=== PATIENT | female | born 1965 | race Caucasian/White ===

== ENCOUNTER 2025-07-27 16:36 | Emergency (ER) | payer OTHER, SELFPAY ==
[2025-07-27 16:55] VITALS: BP 148/69; PULSE 70; TEMP 36.7; O2SAT 97; BMI 23.4
--- NOTE | 2025-07-27 18:15 | ED.GENADUL1 ---
HPI HPI - General Adult General Chief complaint: Recheck/Abnormal Lab/Rx Stated complaint: BACK PAIN/POST SURGICAL Time Seen by Provider: 07/27/25 17:48 Source: patient Mode of arrival: Wheelchair Limitations: no limitations History of Present Illness HPI narrative: The patient is s/p thoracolumbar fusion surgery done in [facility] on the of this month which 3 days ago, the patient apparently had the drain removed after 24 hours, and today she noticed some white dressing and 2 spots of blood almost 1/4 size earlier this morning as well as a little bit bigger than that today that was coming from the lower part of the dressing, patient's pain is controlled with the medication provided to her she had no fever no chills no other concerns Related Data Home Medications ?Medication ?Instructions ?Recorded ?Confirmed albuterol 90 mcg/actuation aerosol mcg inhalation 07/27/25 inhaler amitriptyline 75 mg tablet 75 mg PO DAILY 07/27/25 07/27/25 amlodipine 5 mg tablet 5 mg PO DAILY 07/27/25 07/27/25 aspirin 81 mg tablet 81 mg PO DAILY 07/27/25 07/27/25 atenolol 100 mg tablet 100 mg PO DAILY 07/27/25 07/27/25 atorvastatin 10 mg tablet 10 mg PO DAILY 07/27/25 07/27/25 clonidine HCl 0.1 mg tablet 0.05 mg PO Q12H 07/27/25 07/27/25 cyanocobalamin (vitamin B-12) 1,000 mcg PO DAILY 07/27/25 07/27/25 1,000 mcg capsule ergocalciferol (vitamin D2) 1,250 1,250 mcg PO QWEEK 07/27/25 07/27/25 mcg (50,000 unit) capsule fluticasone propionate 230 2 inh inhalation BID 07/27/25 07/27/25 mcg-salmeterol 21 mcg/actuation HFA inhaler (Advair HFA) furosemide 20 mg tablet (Lasix) 20 mg PO DAILY 07/27/25 07/27/25 hydroxyzine HCl 25 mg tablet 25 mg PO BID 07/27/25 07/27/25 lisinopril 40 mg tablet 40 mg PO DAILY 07/27/25 07/27/25 omeprazole 20 mg capsule,delayed 20 mg PO DAILY 07/27/25 07/27/25 release oxycodone-acetaminophen 5 mg-325 1 tab PO Q4H 07/27/25 07/27/25 mg tablet (Endocet) pantoprazole 40 mg granules 40 mg PO Q12H 07/27/25 07/27/25 delayed-release for susp in packet (Protonix) paroxetine HCl 40 mg tablet 40 mg PO DAILY 07/27/25 07/27/25 Allergies Allergy/AdvReac Type Severity Reaction Status Date / Time gluten Allergy IBS Verified 07/27/25 16:59 Penicillins Allergy Blister Verified 07/27/25 16:59 Review of Systems ROS Status of ROS 10 or more systems reviewed and unremarkable except as noted in history and below Exam Narrative Exam Narrative: Nurses notes and vital signs reviewed and patient is not hypoxic. Back exam; The patient have a clean dressing on the thoracolumbar level extending down to the sacral area after removing the dressing it was noted that the patient have clean dressing with devon that shows no pocketing no swelling no redness no hotness no signs of infection The blood was only seen on the dressing and it was soaked with blood at the lower end of it, on the lateral aspect of the lower end of the wound the patient had the insertion site where the drain was placed and it is healing well General: Well-appearing and in no apparent distress. Skin: Warm, dry, no pallor noted. No rash. Head: Normocephalic, atraumatic. Neck: Supple, non-tender. Eye: Pupils are equal, round and EOMI. No scleral icterus. Ears, Nose, Mouth, and Throat: TM are clear, no nasal mucosal hypertrophy. Oral mucosa is moist, no posterior oropharynx erythema, uvula is mid-line Cardiovascular: Regular Rate and Rhythm without murmur, gallop or rub. Respiratory: No accessory muscle use or respiratory distress. Lungs are clear to auscultation, no wheezing, rales or rhonchi Chest Wall: no tenderness GI: Abdomen is soft, non-distended. Normal bowel sounds. No masses appreciated. No tenderness to palpation. No rebound, guarding, or rigidity noted. Neurological: A&O x4. No cranial nerve dysfunction observed. No truncal ataxia. Moves all extremities. Sensation intact. Psychiatric: Cooperative and interactive. Normal mood and affect. Constitutional Vital Signs, click to edit/add: Last Vital Signs Temp 98.0 F 07/27/25 16:55 Pulse 70 07/27/25 16:55 Resp 14 07/27/25 16:55 BP 148/69 H 07/27/25 16:55 Pulse Ox 97 07/27/25 16:55 O2 Del Method Room Air 07/27/25 16:55 Course Vital Signs Vital signs: Vital Signs Temperature 98.0 F 07/27/25 16:55 Pulse Rate 70 07/27/25 16:55 Respiratory Rate 14 07/27/25 16:55 Blood Pressure 148/69 H 07/27/25 16:55 Pulse Oximetry 97 07/27/25 16:55 Oxygen Delivery Method Room Air 07/27/25 16:55 Temperature 98.0 F 07/27/25 16:55 Pulse Rate 70 07/27/25 16:55 Respiratory Rate 14 07/27/25 16:55 Blood Pressure 148/69 H 07/27/25 16:55 Pulse Oximetry 97 07/27/25 16:55 Oxygen Delivery Method Room Air 07/27/25 16:55 Medical Decision Making MDM Narrative Medical decision making narrative: Right now initially the plan was to get a dressing specifically similar and replace it with but we eventually were able to replace it with a dressing that is as similar as we can get The patient right now with sure that this is not sign of infection there is no pocketing in the movement it mostly was some blood collected before the drain was removed and once it drained it should not continue to be a problem The patient to monitor for any further bleeding also to monitor for any fever or any discharge to come back to the ER Otherwise the dressing was changed The patient to follow-up with the primary care within 2 to 3 days and to come back to the ER in case of any worsening of the current symptoms or any new symptoms or concerns Discharge Plan Discharge Chief Complaint: Recheck/Abnormal Lab/Rx Clinical Impression: Visit for wound care Patient Disposition: Home, Self-Care Time of Disposition Decision: 18:35 Condition: Good Prescriptions / Home Meds: No Action albuterol 90 mcg/actuation aerosol inhalation amitriptyline 75 mg tablet 75 mg PO DAILY amlodipine 5 mg tablet 5 mg PO DAILY atenolol 100 mg tablet 100 mg PO DAILY atorvastatin 10 mg tablet 10 mg PO DAILY clonidine HCl 0.1 mg tablet 0.05 mg PO Q12H cyanocobalamin (vitamin B-12) 1,000 mcg capsule 1,000 mcg PO DAILY ergocalciferol (vitamin D2) 1,250 mcg (50,000 unit) capsule 1,250 mcg PO QWEEK fluticasone propion-salmeterol [Advair HFA] 230-21 mcg/actuation HFA aerosol inhaler 2 inh inhalation BID furosemide [Lasix] 20 mg tablet 20 mg PO DAILY hydroxyzine HCl 25 mg tablet 25 mg PO BID lisinopril 40 mg tablet 40 mg PO DAILY omeprazole 20 mg capsule,delayed release(DR/EC) 20 mg PO DAILY oxycodone-acetaminophen [Endocet] 5-325 mg tablet 1 tab PO Q4H pantoprazole [Protonix] [address] for susp in packet 40 mg PO Q12H paroxetine HCl 40 mg tablet 40 mg PO DAILY aspirin 81 mg tablet 81 mg PO DAILY Print Language: Uzbek Instructions: Acute Wounds (DC) Referrals: Physician,Non-Staff, MD [Primary Care Provider] - 1 week
== END 2025-07-27 18:45 | disposition home or self-care (01) ==
PROVIDERS: Emergency Provider Emergency Medicine
DX: Z48.01 Encounter for change or removal of surgical wound dressing (principal); Z98.1 Arthrodesis status
CPT/HCPCS: 99282

== ENCOUNTER 2025-08-05 15:15 | Emergency (ER) | payer OTHER, SELFPAY ==
[2025-08-05 15:27] VITALS: BP 178/79; PULSE 86; TEMP 37; O2SAT 100; BMI 23.6
--- NOTE | 2025-08-05 15:44 | XR_ITS ---
The [place] [id number] Patient Name: DANE DAMICO MRN: [id number] date: 1965 Sex: F Assigned Patient Location: ER Current Patient Location: ED.MAIN Accession/Order Number: [id number] Exam Date: 08/05/2025 16:50 Report Date: 08/05/2025 17:28 At the request of: CHARLENE BENITO MD Procedure: XR chest 1V PA CHEST: CLINICAL HISTORY: nausea COMPARISON: None Unremarkable cardiomediastinal silhouette. Lungs/ clear. No effusion or pneumothorax. Postsurgical changes GE junction noted. XR/XR chest 1V IMPRESSION: Negative acute pleural or parenchymal disease Impression dictated by: Zachary Cabrera M.D. 08/05/2025 5:28 PM Dictation Location: [place] [address] Electronically authenticated by: [id number] Y Date: 08/05/2025 17:28
--- NOTE | 2025-08-05 15:44 | CT_ITS ---
The [address] [address] Patient Name: DANE DAMICO MRN: [id number] date: 1965 Sex: F Assigned Patient Location: ED.MAIN Current Patient Location: ED.MAIN Accession/Order Number: [id number] Exam Date: 08/05/2025 16:50 Report Date: 08/05/2025 17:39 At the request of: CHARLENE BENITO MD Procedure: CT abdomen pelvis w con CT ABDOMEN AND PELVIS WITH INTRAVENOUS CONTRAST: CLINICAL HISTORY: Rectal bleeding, history of upper GI bleed COMPARISON: None TECHNIQUE: Spiral images were obtained through the abdomen and pelvis following the administration of intravenous contrast. This CT exam was performed using one or more following dose reduction techniques: Automated exposure control, adjustment of the mA and/or kV according to patient size, or use of iterative reconstruction technique. FINDINGS: Bibasilar atelectasis and or scarring greatest right lung base. Postsurgical changes GE junction noted. Moderate to severe gastric distention with air fluid level possibly related to recently ingested material. Correlate with possible gastric outlet obstruction. Otherwise the liver, spleen, adrenals and pancreas unremarkable. There are bilateral bandlike hypodensity involving the kidneys possibly sequelae of prior ischemic or infectious insult. Motion through the gallbladder. This no definite gallbladder wall thickening within the constraints of the motion. [id number] retained stool throughout the colon. No bowel obstruction. There are scattered areas of narrowing involving the colon greatest involving the right colon possibly due to nonspecific peristaltic activity.. Moderate to severe plaque involving the nonaneurysmal aorta and mesenteric vessels. No free air or free fluid. Bladder is grossly unremarkable. Uterus absent. No adnexal mass. The posterior changes involving the lumbar spine with overlying skin devon. There is minimal gas identified within the operative bed at L1-L2, correlate with recent surgery at this level given the tiny locule of gas. Otherwise evidence of multilevel laminectomy. Residual pedicle screws at on the right at L2, bilaterally at L3, and on the left at L4 on L5. Suspect severe neural foraminal narrowing due to disc bulges L2-L3. Suspect moderate neural from narrowing L3-S1 due to disc disease and posterior element hypertrophic changes. CT/CT abdomen pelvis w con IMPRESSION: Moderate severe gastric distention with air-fluid level noted, correlate with recent ingestion are possibility of a gastric outlet obstruction. Wedge-shaped areas of hypoenhancement both kidneys noted may raise possibility for age indeterminate likely chronic ischemic or infectious insult. Postsurgical changes lumbar spine with residual locules of gas at the L1-2 level, correlate with recent surgery level. Impression dictated by: Zachary Cabrera M.D. 08/05/2025 5:39 PM Dictation Location: [place] [address] Electronically authenticated by: [id number] Y Date: 08/05/2025 17:39
--- NOTE | 2025-08-05 15:44 | ECG_ITS ---
The [facility] Test Date: 2025-08-05 Pat Name: DANE DAMICO Department: Room: - Gender: Female Director Recreation: : 1965 Requested By: [id number] Order Number: [id number] Reading MD: ZACK DEWITT M.D. Measurements Intervals [place] Rate: 76 P: 63 RI: 196 QRS: 47 QRSD: 90 T: 66 QT: 370 QTc: 400 Interpretive Statements 1100 Sinus rhythm 3433 Septal myocardial infarction, probably old 9150 abnormal ECG No previous ECG available for comparison Electronically Signed On 08-06-2025 19:47:11 EST by ZACK DEWITT M.D.
--- NOTE | 2025-08-05 15:46 | ED.GENADUL1 ---
HPI HPI - General Adult General Chief complaint: Abdominal Pain Stated complaint: LOWER BACK FUSION FEW WEEKS AGO/ WHEN POOPS/BLEEDS Time Seen by Provider: 08/05/25 15:31 Source: patient Mode of arrival: Wheelchair History of Present Illness HPI narrative: 60-year-old female presents for the concern of rectal bleeding. She has had black stools. 2 weeks ago she had lumbar discectomy. She has been on Percocet and is not on any blood thinners. She has a remote history of an upper GI bleed that required surgical procedure. No vomiting or hematemesis. No bright red blood per rectum. Related Data Home Medications ?Medication ?Instructions ?Recorded ?Confirmed albuterol 90 mcg/actuation aerosol mcg inhalation 07/27/25 inhaler amitriptyline 75 mg tablet 75 mg PO DAILY 07/27/25 08/05/25 amlodipine 5 mg tablet 5 mg PO DAILY 07/27/25 08/05/25 aspirin 81 mg tablet 81 mg PO DAILY 07/27/25 08/05/25 atenolol 100 mg tablet 100 mg PO DAILY 07/27/25 08/05/25 atorvastatin 10 mg tablet 10 mg PO DAILY 07/27/25 08/05/25 clonidine HCl 0.1 mg tablet 0.05 mg PO Q12H 07/27/25 08/05/25 cyanocobalamin (vitamin B-12) 1,000 mcg PO DAILY 07/27/25 08/05/25 1,000 mcg capsule ergocalciferol (vitamin D2) 1,250 1,250 mcg PO QWEEK 07/27/25 08/05/25 mcg (50,000 unit) capsule fluticasone propionate 230 2 inh inhalation BID 07/27/25 08/05/25 mcg-salmeterol 21 mcg/actuation HFA inhaler (Advair HFA) furosemide 20 mg tablet (Lasix) 20 mg PO DAILY 07/27/25 08/05/25 hydroxyzine HCl 25 mg tablet 25 mg PO BID 07/27/25 08/05/25 lisinopril 40 mg tablet 40 mg PO DAILY 07/27/25 08/05/25 omeprazole 20 mg capsule,delayed 20 mg PO DAILY 07/27/25 08/05/25 release oxycodone-acetaminophen 5 mg-325 1 tab PO Q4H 07/27/25 08/05/25 mg tablet (Endocet) pantoprazole 40 mg granules 40 mg PO Q12H 07/27/25 08/05/25 delayed-release for susp in packet (Protonix) paroxetine HCl 40 mg tablet 40 mg PO DAILY 07/27/25 08/05/25 Allergies Allergy/AdvReac Type Severity Reaction Status Date / Time gluten Allergy IBS Verified 08/05/25 15:25 Penicillins Allergy Blister Verified 08/05/25 15:25 Review of Systems ROS Narrative A ten point review of systems is negative except as noted above. PFSH PFSH Social History Little interest or pleasure in doing things: not at all Feeling down, depressed, or hopeless: not at all Exam Narrative Exam Narrative: Nurses note and vital signs reviewed General:The patient appears well and in no apparent distress. Patient is resting comfortably on cart. Skin:Warm, dry, no pallor noted.There is no rash noted. Head:Normocephalic, atraumatic Eye: Normal conjunctiva, no drainage Ears, Nose, Mouth, and Throat: oral mucosa is moist. Nares patent. Cardiovascular:Regular Rate and Rhythm, not tachycardic Respiratory:Patient is in no distress, no accessory muscle use, lungs are clear to auscultation, no wheezing, rales or rhonchi Back:non-tender, no CVA tenderness bilaterally to percussion. GI: Soft and nontender nondistended Musculoskeletal: The patient has no evidence of calf tenderness, no pitting edema, symmetrical pulses noted bilaterally Neurological:A&O x4, normal speech she has some tremors. Psychiatric:Cooperative Constitutional Vital Signs, click to edit/add: Last Vital Signs Temp 98.6 F 08/05/25 15:27 Pulse 75 08/05/25 17:20 Resp 18 08/05/25 17:20 BP 126/67 08/05/25 17:20 Pulse Ox 95 08/05/25 17:20 O2 Del Method Room Air 08/05/25 15:27 Course Vital Signs Vital signs: Vital Signs Temperature 98.6 F 08/05/25 15:27 Pulse Rate 86 08/05/25 15:27 Respiratory Rate 18 08/05/25 15:27 Blood Pressure 178/79 H 08/05/25 15:27 Pulse Oximetry 100 08/05/25 15:27 Oxygen Delivery Method Room Air 08/05/25 15:27 Temperature 98.6 F 08/05/25 15:27 Pulse Rate 75 08/05/25 17:20 Respiratory Rate 18 08/05/25 17:20 Blood Pressure 126/67 08/05/25 17:20 Pulse Oximetry 95 08/05/25 17:20 Oxygen Delivery Method Room Air 08/05/25 15:27 Medical Decision Making MDM Narrative Medical decision making narrative: No blood was found in her stool. Hemoglobin is 8.3 but she is always anemic according the patient. No previous for comparison. CT scanning's are discussed with the patient as well. She had eaten just before coming into the emergency department and has had a gastric banding. She has had no vomiting and does not complain to me of abdominal pain. She is able to be discharged home. She will need to follow-up with her doctor if she develops blood in her stool. Treatment diagnosis and follow-up were discussed thoroughly. Differential Diagnosis Differential Diagnosis: Upper GI bleed, lower GI bleed Lab Data Lab results reviewed: Yes I reviewed the patient's lab results Labs: Lab Results 08/05/25 08/05/25 Range/Units 16:00 16:04 WBC 11.3 H (4.0-11.0) 10^3/uL RBC 2.60 L (4.20-5.40) 10^6/uL Hgb 8.3 L (12.0-16.0) g/dL Hct 24.5 L (36.0-48.0) % MCV 94.2 (81.0-99.0) fL MCH 31.9 (26.7-34.0) pg MCHC 33.9 (29.9-35.2) g/dL RDW 14.2 (11.0-15.0) % Plt Count 503 H (150-450) 10^3/uL MPV 8.2 L (9.5-13.5) fL Neut % (Auto) 69.1 (43.0-75.0) % Lymph % (Auto) 18.5 L (20.5-60.0) % Jewell % (Auto) 9.6 (1.7-12.0) % Eos % (Auto) 1.6 (0.9-7.0) % Baso % (Auto) 0.7 (0.2-2.0) % Neut # (Auto) 7.8 H (1.4-6.5) 10^3/uL Lymph # (Auto) 2.1 (1.2-3.8) 10^3/uL Jewell # (Auto) 1.1 H (0.3-0.8) 10^3/uL Eos # (Auto) 0.2 (0.0-0.7) 10^3/uL Baso # (Auto) 0.1 (0.0-0.1) 10^3/uL Abs Immat Gran (auto) 0.06 H (0.00-0.03) 10^3/uL Imm/Tot Granulo (auto) 0.5 (0.0-0.5) % Sodium 133 L (136-145) mmol/L Potassium 3.6 (3.5-5.1) mmol/L Chloride 98 (98-107) mmol/L Carbon Dioxide 29.6 (21.0-32.0) mmol/L Anion Gap 9.0 BUN 10.0 (7.0-18.0) mg/dL Creatinine 1.22 H (0.55-1.02) mg/dL Est GFR ( Amer) 54 L (>=60 mL/min/1.73m^2) Est GFR (Non-Af Amer) 45 L (>=60 mL/min/1.73m^2) BUN/Creatinine Ratio 8.2 Glucose 126 H (74-106) mg/dL Calcium 8.8 (8.5-10.1) mg/dL Total Bilirubin 0.2 (0.2-1.0) mg/dL Direct Bilirubin 0.1 (0.0-0.2) mg/dL AST 11 L (15-37) U/L ALT 20 (14-59) U/L Alkaline Phosphatase 117 H (46-116) U/L Total Protein 6.4 (6.4-8.2) g/dL Albumin 3.2 L (3.4-5.0) g/dL Globulin 3.2 g/dL Albumin/Globulin Ratio 1.0 Amylase 31 (25-115) U/L Lipase 24.0 (16.0-77.0) U/L Stool Occult Blood Negative Imaging Data CT scan - abdomen: Radiologist's impression: ITS Impressions Abdomen/Pelvis CT 08/05/25 15:44 IMPRESSION: Moderate severe gastric distention with air-fluid level noted, correlate with recent ingestion are possibility of a gastric outlet obstruction. Wedge-shaped areas of hypoenhancement both kidneys noted may raise possibility for age indeterminate likely chronic ischemic or infectious insult. Postsurgical changes lumbar spine with residual locules of gas at the L1-2 level, correlate with recent surgery level. Impression dictated by: Zachary Cabrera M.D. 08/05/2025 5:39 PM Dictation Location: [email or web address] Electronically authenticated by: [id number] Y Date: 08/05/2025 17:39 Chest X-Ray 08/05/25 15:44 IMPRESSION: Negative acute pleural or parenchymal disease Impression dictated by: Zachary Cabrera M.D. 08/05/2025 5:28 PM Dictation Location: [facility] Electronically authenticated by: [id number] Y Date: 08/05/2025 17:28 ECG Data Attestation: I personally reviewed and interpreted this ECG as follows: (EKG on my interpretation shows sinus rhythm with rate of 76 and no acute change) Discharge Plan Discharge Chief Complaint: Abdominal Pain Clinical Impression: No problem, feared complaint unfounded Patient Disposition: Home, Self-Care Time of Disposition Decision: 17:49 Condition: Good Mode of Transportation: Private Vehicle Prescriptions / Home Meds: No Action albuterol 90 mcg/actuation aerosol inhalation amitriptyline 75 mg tablet 75 mg PO DAILY amlodipine 5 mg tablet 5 mg PO DAILY atenolol 100 mg tablet 100 mg PO DAILY atorvastatin 10 mg tablet 10 mg PO DAILY clonidine HCl 0.1 mg tablet 0.05 mg PO Q12H cyanocobalamin (vitamin B-12) 1,000 mcg capsule 1,000 mcg PO DAILY ergocalciferol (vitamin D2) 1,250 mcg (50,000 unit) capsule 1,250 mcg PO QWEEK fluticasone propion-salmeterol [Advair HFA] 230-21 mcg/actuation HFA aerosol inhaler 2 inh inhalation BID furosemide [Lasix] 20 mg tablet 20 mg PO DAILY hydroxyzine HCl 25 mg tablet 25 mg PO BID lisinopril 40 mg tablet 40 mg PO DAILY omeprazole 20 mg capsule,delayed release(DR/EC) 20 mg PO DAILY oxycodone-acetaminophen [Endocet] 5-325 mg tablet 1 tab PO Q4H pantoprazole [Protonix] [address] for susp in packet 40 mg PO Q12H paroxetine HCl 40 mg tablet 40 mg PO DAILY aspirin 81 mg tablet 81 mg PO DAILY Print Language: Yi Instructions: Pain Management After Surgery (DC) Referrals: Physician,Non-Staff, MD [Primary Care Provider] - 1 week
[2025-08-05 16:08] VITALS: PULSE 81
[2025-08-05 16:12] LABS: Hematocrit 24.5 % (36.0-48.0); Hemoglobin 8.3 g/dL (12.0-16.0); Immature Granulocytes Abs Auto 0.06 10^3/uL (0.00-0.03); Immature Granulocytes Pct Auto 0.5 % (0.0-0.5); Lymphocytes Absolute Auto 2.1 10^3/uL (1.2-3.8); Mean Corpuscular HGB Conc 33.9 g/dL (29.9-35.2); Mean Corpuscular Hemoglobin 31.9 pg (26.7-34.0); Mean Corpuscular Volume 94.2 fL (81.0-99.0); Platelet Count 503 10^3/uL (150-450); Red Blood Count 2.60 10^6/uL (4.20-5.40); White Blood Count 11.3 10^3/uL (4.0-11.0)
[2025-08-05 16:27] LABS: Alanine Aminotransferase 20 U/L (14-59); Albumin Globulin Ratio 1.0; Albumin Level 3.2 g/dL (3.4-5.0); Alkaline Phosphatase 117 U/L (46-116); Amylase 31 U/L (25-115); Anion Gap 9.0; Aspartate Amino Transferase 11 U/L (15-37); Blood Urea Nitrogen 10.0 mg/dL (7.0-18.0); Calcium 8.8 mg/dL (8.5-10.1); Carbon Dioxide 29.6 mmol/L (21.0-32.0); Chloride 98 mmol/L (98-107); Estimated GFR (African America 54 (>=60 mL/min/1.73m^2); Estimated GFR (Non-African Ame 45 (>=60 mL/min/1.73m^2); Globulin 3.2 g/dL; Glucose 126 mg/dL (74-106); Lipase 24.0 U/L (16.0-77.0); Potassium 3.6 mmol/L (3.5-5.1); Sodium 133 mmol/L (136-145); Total Protein 6.4 g/dL (6.4-8.2)
[2025-08-05] MEDS: PANTOPRAZOLE SODIUM 40 MG VIAL IV (16:29)
[2025-08-05 17:20] VITALS: BP 126/67; PULSE 75; O2SAT 95
== END 2025-08-05 18:01 | disposition home or self-care (01) ==
PROVIDERS: Emergency Provider Emergency Medicine
DX: Z03.89 Encounter for observation for other suspected diseases and conditions ruled out (principal); Z98.1 Arthrodesis status
CPT/HCPCS: 36415; 71045; 74177; 80048; 80076; 82150; 83690; 85025; 93005; 96374; 96375; 99285; G0328; J2405; Q9967